=== PATIENT | male | born 1940 | race Caucasian/White ===

== ENCOUNTER → 2016-10-26 | Outpatient (CLI) | payer OTHER ==
[~2016-10-26] MED LIST: ATIVAN0.5 MG PO; MACROBID100 M1 PO; MOTRIN800 MG PO
== END | disposition home or self-care (01) ==
LOC: LAB 11:54
DX: C61 Malignant neoplasm of prostate (principal)

== ENCOUNTER → 2016-11-01 | Outpatient (CLI) | payer OTHER | END | disposition home or self-care (01) | LOC: LAB 09:15 | DX: C61 Malignant neoplasm of prostate (principal) ==

== ENCOUNTER 2016-12-07 16:22 | Emergency (ER) | payer OTHER ==
[~2016-12-07] VITALS: Ht 170.1 cm; Wt 65.8 kg
[2016-12-07] MEDS ORDERED: METFORMIN500 MG PO (16:33)
[2016-12-07] MEDS ORDERED: NAPROSYN500 MG PO (17:32)
[2016-12-07] MEDS ORDERED: CLINDAMYCIN150 MG PO (17:32)
[2016-12-07 19:01] VITALS: BP 188/100
[2016-12-07 19:06] LABS: BASO % 0.3 % (0.0-1.0); EOS % 0.5 % (1.0-4.0); HEMATOCRIT 37.3 % (42.0-52.0); HEMOGLOBIN 12.8 g/dl (14.0-18.0); LYMPH # 0.5 10*3/uL (1.3-4.4); LYMPH % 11.4 % (27.0-41.0); MEAN CELL VOLUME 92.6 fl (80.0-94.0); MEAN CORPUSCULAR HGB 31.8 pg (27.0-31.0); MEAN CORPUSCULAR HGB CONC 34.3 g/dl (33.0-37.0); MEAN PLATELET VOLUME 8.7 fl (9.6-12.3); MONO # 0.5 10*3/uL (0.1-1.0); MONO % 13.2 % (3.0-9.0); NEUT # 2.9 10*3/uL (2.3-7.9); NEUT % 74.1 % (47.0-73.0); PLATELET COUNT AUTOMATED 227 10*3/uL (130-400); RED BLOOD COUNT 4.03 10*6/uL (4.50-5.90); RED CELL DISTRI WIDTH 13.3 % (0-14.5); WHITE BLOOD COUNT 3.9 10*3/uL (4.8-10.8)
[2016-12-07 19:24] LABS: ALBUMIN 3.9 gm/dl (3.1-4.5); ALKALINE PHOSPHATASE 56 U/L (45-117); BILIRUBIN, TOTAL 0.6 mg/dl (0.2-1.0); BUN 14 mg/dl (7-24); CARBON DIOXIDE 29 mmol/L (21-32); CHLORIDE 94 mmol/L (98-107); EST GLOM FILT AFRICAN AMERICAN > 60 ml/min; GLUCOSE 107 mg/dL (65-99); INTERNATIONAL NORM RATIO 0.9 (2.0-3.5); POTASSIUM 4.1 mmol/L (3.5-5.1); PROTHROMBIN TIME 9.9 SECONDS (9.0-12.4); SGOT/AST 18 IU/L (3-35); SGPT/ALT 15 U/L (12-78); SODIUM 130 mmol/L (136-145); TOTAL PROTEIN 6.9 gm/dL (6.4-8.2)
== END 2016-12-07 19:57 | disposition short-term general hospital (02) ==
LOC: ED 16:22
PROVIDERS: Nurse Practitioner Family
DX: S02.91XA Unspecified fracture of skull, initial encounter for closed fracture (principal); S61.531A Puncture wound without foreign body of right wrist, initial encounter; R03.0 Elevated blood-pressure reading, without diagnosis of hypertension; W01.0XXA Fall on same level from slipping, tripping and stumbling without subsequent striking against object, initial encounter; Y93.89 Activity, other specified; Y92.89 Other specified places as the place of occurrence of the external cause; Y99.8 Other external cause status

== ENCOUNTER 2017-03-24 09:50 | Emergency (ER) | payer OTHER ==
[~2017-03-24] VITALS: Wt 72.6 kg
[~2017-03-24 09:50] MED LIST changes: +CLINDAMYCIN150 MG PO; +METFORMIN500 MG PO; +NAPROSYN500 MG PO
[2017-03-24 10:28] LABS: BASO % 0.3 % (0.0-1.0); EOS # 0.2 10*3/uL (0.0-0.4); HEMATOCRIT 37.6 % (42.0-52.0); HEMOGLOBIN 12.3 g/dl (14.0-18.0); LYMPH # 2.3 10*3/uL (1.3-4.4); LYMPH % 33.7 % (27.0-41.0); MEAN CELL VOLUME 97.4 fl (80.0-94.0); MEAN CORPUSCULAR HGB 31.9 pg (27.0-31.0); MEAN CORPUSCULAR HGB CONC 32.7 g/dl (33.0-37.0); MEAN PLATELET VOLUME 9.4 fl (9.6-12.3); MONO # 0.9 10*3/uL (0.1-1.0); NEUT # 3.3 10*3/uL (2.3-7.9); NEUT % 49.3 % (47.0-73.0); PLATELET COUNT AUTOMATED 388 10*3/uL (130-400); RED BLOOD COUNT 3.86 10*6/uL (4.50-5.90); RED CELL DISTRI WIDTH 12.5 % (0-14.5); WHITE BLOOD COUNT 6.7 10*3/uL (4.8-10.8)
[2017-03-24 10:37] LABS: ACT PARTIAL THROMBO TIME 25.5 SECONDS (20.8-31.5); INTERNATIONAL NORM RATIO 0.9 (2.0-3.5)
[2017-03-24 10:52] LABS: ALBUMIN 3.8 gm/dl (3.1-4.5); BUN 16 mg/dl (7-24); CHLORIDE 93 mmol/L (98-107); CREATININE 1.22 mg/dL (0.70-1.30); POTASSIUM 4.8 mmol/L (3.5-5.1); SGOT/AST 27 IU/L (3-35); SGPT/ALT 17 U/L (12-78); SODIUM 131 mmol/L (136-145); TOTAL PROTEIN 7.5 gm/dL (6.4-8.2)
[2017-03-24 10:53] LABS: ALKALINE PHOSPHATASE 82 U/L (45-117)
[2017-03-24 11:12] VITALS: BP 112/70
== END 2017-03-24 11:12 | disposition short-term general hospital (02) ==
LOC: ED 09:50
PROVIDERS: Emergency Medicine
DX: I62.9 Nontraumatic intracranial hemorrhage, unspecified (principal); R56.9 Unspecified convulsions; E11.9 Type 2 diabetes mellitus without complications; R41.82 Altered mental status, unspecified; R41.0 Disorientation, unspecified

== ENCOUNTER → 2017-04-21 | Outpatient (CLI) | payer OTHER, MEDICAID | END | disposition home or self-care (01) | LOC: LAB 12:01 | DX: C61 Malignant neoplasm of prostate (principal) ==

== ENCOUNTER → 2017-05-13 | Outpatient (CLI) | payer OTHER, MEDICAID ==
[2017-05-13 11:06] LABS: BASO % 0.3 % (0.0-1.0); EOS # 0.1 10*3/uL (0.0-0.4); EOS % 4.2 % (1.0-4.0); HEMATOCRIT 33.9 % (42.0-52.0); HEMOGLOBIN 11.8 g/dl (14.0-18.0); LYMPH # 0.6 10*3/uL (1.3-4.4); LYMPH % 20.3 % (27.0-41.0); MEAN CELL VOLUME 93.1 fl (80.0-94.0); MEAN CORPUSCULAR HGB 32.4 pg (27.0-31.0); MEAN CORPUSCULAR HGB CONC 34.8 g/dl (33.0-37.0); MEAN PLATELET VOLUME 8.7 fl (9.6-12.3); MONO # 0.5 10*3/uL (0.1-1.0); MONO % 16.7 % (3.0-9.0); NEUT # 1.8 10*3/uL (2.3-7.9); NEUT % 57.5 % (47.0-73.0); PLATELET COUNT AUTOMATED 243 10*3/uL (130-400); RED BLOOD COUNT 3.64 10*6/uL (4.50-5.90); RED CELL DISTRI WIDTH 13.3 % (0-14.5); WHITE BLOOD COUNT 3.1 10*3/uL (4.8-10.8)
[2017-05-13 11:35] LABS: ALBUMIN 3.8 gm/dl (3.1-4.5); ALKALINE PHOSPHATASE 79 U/L (45-117); BUN 16 mg/dl (7-24); CHLORIDE 98 mmol/L (98-107); CHOLESTEROL 202 mg/dL (<200); CREATININE 0.92 mg/dL (0.70-1.30); HDL CHOLESTEROL 80 mg/dl (40-60); LDL CHOLESTEROL 96 mg/dL (9-159); POTASSIUM 4.9 mmol/L (3.5-5.1); SGOT/AST 18 IU/L (3-35); SGPT/ALT 19 U/L (12-78); SODIUM 133 mmol/L (136-145); TOTAL PROTEIN 7.2 gm/dL (6.4-8.2); TRIGLYCERIDES 131 mg/dl (<150); VLDL CHOLESTEROL 26 mg/dL (6-40)
== END | disposition home or self-care (01) ==
LOC: LAB 10:32
PROVIDERS: Nurse Practitioner Primary Care
DX: Z12.5 Encounter for screening for malignant neoplasm of prostate (principal); I10 Essential (primary) hypertension; E11.9 Type 2 diabetes mellitus without complications

== ENCOUNTER → 2017-05-20 | Outpatient (CLI) | payer OTHER, MEDICAID | END | disposition home or self-care (01) | LOC: LAB 12:32 | DX: C61 Malignant neoplasm of prostate (principal) ==

== ENCOUNTER → 2017-05-27 | Outpatient (CLI) | payer OTHER, MEDICAID | END | disposition home or self-care (01) | LOC: CT 03:39 | DX: I62.00 Nontraumatic subdural hemorrhage, unspecified (principal); Z98.890 Other specified postprocedural states ==

== ENCOUNTER 2017-07-12 12:00 | Inpatient (IN) | payer OTHER, MEDICAID ==
[~2017-07-12] VITALS: Ht 170.1 cm; Wt 64.7 kg
--- NOTE | ~2017-07-12 | CON ---
[place], [place] REPORT OF CONSULTATION NAME: DELIA ROTHMAN UNIT #: [id number] ROOM: 525 DOCTOR: NORMAN HAYWOOD MD BIRTHDATE: [birth year] DOS: 07/13/2017 NEPHROLOGY CONSULTATION REASON FOR CONSULTATION: Hyponatremia. HISTORY OF PRESENT ILLNESS: The patient is a 77-year-old gentleman, not previously followed by a accessories repairer, without any known history of any hyponatremia or issues with his kidneys. He was recently hospitalized at [facility] after sustaining a fall with change in mental status. He has had uncontrolled hypertension in the past. He has also had an initial CT scan back on March 24 when he had a 1.8-cm subdural hematoma and 2-mm left midline shift without herniation noted. He was flown to [facility] at that time. He is unable to provide any reliable medical history as his dates and times are very poor. He thought he was there just last month. He had what appears to have been a craniotomy and he states that at home he had a fall last week and he had no complaints of any chest pain, shortness of breath, dizziness or some passing out spells and states that he fell on his buttocks and had no pain post fall. However, he was told by his girlfriend that he should come to the hospital for further evaluation. He went to the [facility] and had some orthostatic vital signs and a low pulse ox of 88% and he was sent to the Emergency Department for further evaluation. Per the admitting documentation, it appears that the patient had been having prior falls as well. The patient has a power of gold reclaimer who apparently only knows him for 6 months. We are consulted as his initial sodium level was 125. He had a negative head CT done so far while during this hospitalization. He had a set of fairly stable electrolytes and blood pressures on prior hospitalizations. Today, his sodium is improved to 130. He had urinalysis, which was done after some volume had already been given. His urine osmolality was 154. Sodium was 33, chloride 35, potassium 17, creatinine 16.2. He states that he has a good appetite and he is trying to eat dinner,. He does not seem to have any nausea or vomiting at this time, but intake may be somewhat limited. HOME MEDICATIONS: Include lisinopril, carvedilol, and metformin. He is not on any diuretics. He was given half-normal saline for 1 liter yesterday. I was told he was getting normal saline, but apparently it was half normal hikes. 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 PAST SURGICAL HISTORY: Treatment of the above as well as history of cataract surgery and hernia surgery. FAMILY HISTORY: Negative for renal failure. ALLERGIES: No known drug allergies. SOCIAL HISTORY: Denies any toxic habits. REVIEW OF SYSTEMS: Limited from the patient from a reliability standpoint, but [place], [place] REPORT OF CONSULTATION NAME: DELIA ROTHMAN UNIT #: [id number] ROOM: [facility] DOCTOR: NORMAN HAYWOOD MD BIRTHDATE: [birth year] denies all systems except for as mentioned above in the HPI. PHYSICAL EXAMINATION: VITAL SIGNS: 98.6, 64, 20, 140/82, pulse ox 98% on room air. GENERAL: Awake, alert. He seems to be oriented to himself and place as well as time, but his overall insight and concentration is limited. Recent memory of his events are also limited. Speech patterns are otherwise clear and cogent. He has hearing aids in place. HEENT: Extraocular muscles are intact. Sclerae anicteric. Oropharynx is clear. Pupils are equal and reactive. No JVD or lymphadenopathy. NECK: Supple, with normal midline trachea. LUNGS: Clear bilaterally without audible rales, rhonchi or wheeze. CARDIOVASCULAR: Regular rate. No audible rub. No palpable lift or heave. ABDOMEN: Soft, nontender, nondistended. No rebound or guarding. No CVA tenderness. EXTREMITIES: Without cyanosis, clubbing or edema. Normal 2+ pulses in all 4 extremities. SKIN: Without diffuse rashes or breakdowns. NEUROLOGIC: No asterixis. Normal gross motor function. Sensation deconditioned. LABORATORIES AND DIAGNOSTICS: White blood cell count 3.5; hemoglobin 10.6; platelets 200,000. Sodium 130, potassium 4.3, chloride 95, bicarb 27. BUN 11; creatinine 0.93, stable, down from 1.22. A1c is 5.1, calcium 8.6, phosphorus 3.1, magnesium 1.8. LFTs unremarkable. Albumin 3.2. Vitamin D level slightly low at 23.5. Thyroid function studies are normal. Urine studies as mentioned above. Troponin negative. ASSESSMENT AND PLAN: Hyponatremia. This seems to be acute, likely secondary to poor solute intake prior to hospitalization. He was given some in the form of half-normal saline. Sodium has improved to 130. I would encourage him to be on copious oral protein and solute intake at this point and recommend mild fluid restriction at this point as he may be having some mild polydipsia relative to the amount of solute intake. Continue to avoid thiazide diuretics. His blood pressures are acceptably controlled on his home oral regimen, but they seem to be somewhat labile. He has mild vitamin D deficiency, is started on replacement as well as hypertension is acceptably controlled. If there is no further improvement in sodium with oral intake and gentle fluid restriction, we would recommend another liter of fluid, this time saline 0.9%. Thank you very much for the kind consultation. [place], [place] REPORT OF CONSULTATION NAME: DELIA ROTHMAN UNIT #: [id number] ROOM: [facility] DOCTOR: NORMAN HAYWOOD MD BIRTHDATE: [birth year] NORMAN HAYWOOD MD CM:CONSTR:REPORT OF CONSULTATION 1603 07/14/17 0310 interface
[2017-07-12 12:14] VITALS: BP 154/98
[2017-07-12 12:44] LABS: EOS # 0.1 10*3/uL (0.0-0.4); EOS % 2.5 % (1.0-4.0); HEMATOCRIT 33.2 % (42.0-52.0); HEMOGLOBIN 11.8 g/dl (14.0-18.0); LYMPH # 0.6 10*3/uL (1.3-4.4); MEAN CELL VOLUME 89.7 fl (80.0-94.0); MEAN CORPUSCULAR HGB 31.9 pg (27.0-31.0); MEAN CORPUSCULAR HGB CONC 35.5 g/dl (33.0-37.0); MEAN PLATELET VOLUME 8.4 fl (9.6-12.3); MONO # 0.6 10*3/uL (0.1-1.0); MONO % 12.5 % (3.0-9.0); NEUT # 3.8 10*3/uL (2.3-7.9); NEUT % 73.6 % (47.0-73.0); PLATELET COUNT AUTOMATED 223 10*3/uL (130-400); RED CELL DISTRI WIDTH 12.8 % (0-14.5); WHITE BLOOD COUNT 5.1 10*3/uL (4.8-10.8)
[2017-07-12 13:01] LABS: ALBUMIN 3.9 gm/dl (3.1-4.5); ALKALINE PHOSPHATASE 83 U/L (45-117); BUN 14 mg/dl (7-24); CHLORIDE 92 mmol/L (98-107); CREATININE 0.94 mg/dL (0.70-1.30); POTASSIUM 4.4 mmol/L (3.5-5.1); SGOT/AST 14 IU/L (3-35); SGPT/ALT 18 U/L (12-78); SODIUM 125 mmol/L (136-145); TOTAL PROTEIN 7.2 gm/dL (6.4-8.2)
[2017-07-12 13:07] LABS: TROPONIN I < 0.015 ng/ml (<0.045)
[2017-07-12 13:49] LABS: BILIRUBIN NEGATIVE (NEGATIVE); BLOOD 2+ (NEGATIVE); CLARITY CLEAR (CLEAR); COLOR YELLOW (YELLOW); GLUCOSE NEGATIVE (NEGATIVE); KETONE NEGATIVE (NEGATIVE); LEUKO ESTERASE NEGATIVE (NEGATIVE); NITRITE NEGATIVE (NEGATIVE); PH 5.5 (5.0-9.0); SPECIFIC GRAVITY <= 1.005 (1.005-1.030); UROBILINOGEN 0.2 E.U./dl (0.2-1.0)
[2017-07-12 14:00] LABS: BACTERIA TRACE; RBC 16-20 rbc/hpf (0-2); WBC 0-2 wbc/hpf (0-5)
[2017-07-12 15:00] VITALS: BP 210/100
[2017-07-12] MEDS ORDERED: COREG6.25 MG PO (15:05)
[2017-07-12] MEDS ORDERED: ZESTRIL40 MG PO (15:05)
[2017-07-12 16:00] VITALS: BP 160/81
[2017-07-12 17:33] LABS: URINE CREATININE RANDOM 16.2 mg/dL
[2017-07-12 20:00] VITALS: BP 114/63
[2017-07-13] VITALS: BP 135/80
[2017-07-13 04:00] VITALS: BP 162/80
[2017-07-13 06:07] LABS: EOS # 0.1 10*3/uL (0.0-0.4); EOS % 2.5 % (1.0-4.0); HEMATOCRIT 30.2 % (42.0-52.0); HEMOGLOBIN 10.6 g/dl (14.0-18.0); LYMPH # 0.4 10*3/uL (1.3-4.4); LYMPH % 12.1 % (27.0-41.0); MEAN CELL VOLUME 90.4 fl (80.0-94.0); MEAN CORPUSCULAR HGB 31.7 pg (27.0-31.0); MEAN CORPUSCULAR HGB CONC 35.1 g/dl (33.0-37.0); MONO # 0.6 10*3/uL (0.1-1.0); MONO % 16.1 % (3.0-9.0); NEUT # 2.4 10*3/uL (2.3-7.9); NEUT % 68.2 % (47.0-73.0); PLATELET COUNT AUTOMATED 200 10*3/uL (130-400); RED BLOOD COUNT 3.34 10*6/uL (4.50-5.90); RED CELL DISTRI WIDTH 12.7 % (0-14.5); WHITE BLOOD COUNT 3.5 10*3/uL (4.8-10.8)
[2017-07-13 06:39] LABS: ALBUMIN 3.2 gm/dl (3.1-4.5); ALKALINE PHOSPHATASE 68 U/L (45-117); BUN 11 mg/dl (7-24); CHLORIDE 95 mmol/L (98-107); CHOLESTEROL 155 mg/dL (<200); CREATININE 0.93 mg/dL (0.70-1.30); FREE T4 1.08 ng/dl (0.76-1.46); HDL CHOLESTEROL 74 mg/dl (40-60); LDL CHOLESTEROL 64 mg/dL (9-159); PHOSPHOROUS 3.1 mg/dL (2.5-4.9); POTASSIUM 4.3 mmol/L (3.5-5.1); SGOT/AST 10 IU/L (3-35); SGPT/ALT 16 U/L (12-78); SODIUM 130 mmol/L (136-145); TOTAL PROTEIN 6.2 gm/dL (6.4-8.2); TRIGLYCERIDES 86 mg/dl (<150); VLDL CHOLESTEROL 17 mg/dL (6-40)
[2017-07-13 08:00] VITALS: BP 125/68
[2017-07-13 08:17] LABS: VITAMIN D, 25-HYDROXY 23.5 ng/mL (30-100)
[2017-07-13 12:00] VITALS: BP 140/82
[2017-07-13 16:00] VITALS: BP 149/88
[2017-07-13 20:00] VITALS: BP 151/90
[2017-07-14] VITALS: BP 128/72
[2017-07-14 06:20] LABS: BASO % 0.3 % (0.0-1.0); EOS # 0.1 10*3/uL (0.0-0.4); EOS % 3.3 % (1.0-4.0); HEMATOCRIT 30.2 % (42.0-52.0); HEMOGLOBIN 10.3 g/dl (14.0-18.0); LYMPH # 0.5 10*3/uL (1.3-4.4); LYMPH % 14.7 % (27.0-41.0); MEAN CELL VOLUME 91.5 fl (80.0-94.0); MEAN CORPUSCULAR HGB 31.2 pg (27.0-31.0); MEAN CORPUSCULAR HGB CONC 34.1 g/dl (33.0-37.0); MEAN PLATELET VOLUME 8.9 fl (9.6-12.3); MONO # 0.6 10*3/uL (0.1-1.0); MONO % 16.5 % (3.0-9.0); NEUT # 2.1 10*3/uL (2.3-7.9); NEUT % 64.3 % (47.0-73.0); PLATELET COUNT AUTOMATED 190 10*3/uL (130-400); RED CELL DISTRI WIDTH 12.7 % (0-14.5); WHITE BLOOD COUNT 3.3 10*3/uL (4.8-10.8)
[2017-07-14 06:44] LABS: BUN 15 mg/dl (7-24); CHLORIDE 97 mmol/L (98-107); POTASSIUM 4.6 mmol/L (3.5-5.1); SODIUM 131 mmol/L (136-145)
[2017-07-14 06:46] LABS: CREATININE 0.94 mg/dL (0.70-1.30)
[2017-07-14 08:00] VITALS: BP 148/68
[2017-07-14 12:00] VITALS: BP 160/80
[2017-07-14 16:00] VITALS: BP 148/70
[2017-07-14 20:00] VITALS: BP 149/84
[2017-07-15] VITALS: BP 164/60
[2017-07-15 07:27] LABS: BUN 13 mg/dl (7-24); CHLORIDE 97 mmol/L (98-107); CREATININE 0.82 mg/dL (0.70-1.30); POTASSIUM 4.6 mmol/L (3.5-5.1); SODIUM 131 mmol/L (136-145)
[2017-07-15 08:00] VITALS: BP 162/68
[2017-07-15 12:00] VITALS: BP 160/66
[2017-07-15] MEDS ORDERED: Vitamin D PO (14:56)
== END 2017-07-15 15:52 | disposition home health service (06) | DRG 641 ==
LOC: ED 12:00 → EDHOLD 13:59 → 5E 13:59
PROVIDERS: Internal Medicine; Nurse Practitioner Family; Registered Nurse; ADMIT Internal Medicine
DX: E87.1 Hypo-osmolality and hyponatremia (principal); E44.0 Moderate protein-calorie malnutrition; D64.9 Anemia, unspecified; E11.9 Type 2 diabetes mellitus without complications; E55.9 Vitamin D deficiency, unspecified; F43.10 Post-traumatic stress disorder, unspecified; I10 Essential (primary) hypertension; K57.90 Diverticulosis of intestine, part unspecified, without perforation or abscess without bleeding; E87.8 Other disorders of electrolyte and fluid balance, not elsewhere classified; Z68.22 Body mass index [BMI] 22.0-22.9, adult; Z79.84 Long term (current) use of oral hypoglycemic drugs; Z79.899 Other long term (current) drug therapy; Z80.9 Family history of malignant neoplasm, unspecified; Z72.89 Other problems related to lifestyle; Z83.3 Family history of diabetes mellitus; Z86.73 Personal history of transient ischemic attack (TIA), and cerebral infarction without residual deficits; Z85.46 Personal history of malignant neoplasm of prostate; Z87.81 Personal history of (healed) traumatic fracture; Z87.440 Personal history of urinary (tract) infections; Z98.49 Cataract extraction status, unspecified eye

== ENCOUNTER → 2017-07-22 | Outpatient (CLI) | payer OTHER, MEDICAID ==
[~2017-07-22] MED LIST changes: +COREG6.25 MG PO; +Vitamin D PO; +ZESTRIL40 MG PO
[2017-07-22 08:54] LABS: BUN 13 mg/dl (7-24); CHLORIDE 98 mmol/L (98-107); CREATININE 0.92 mg/dL (0.70-1.30); POTASSIUM 4.1 mmol/L (3.5-5.1); SODIUM 135 mmol/L (136-145)
== END | disposition home or self-care (01) ==
LOC: LAB 07:55
PROVIDERS: Internal Medicine
DX: E87.1 Hypo-osmolality and hyponatremia (principal)

== ENCOUNTER 2017-09-05 11:05 | Emergency (ER) | payer OTHER, MEDICAID ==
[~2017-09-05] VITALS: Ht 170.1 cm; Wt 69.4 kg
[2017-09-05 12:06] LABS: EOS # 0.1 10*3/uL (0.0-0.4); EOS % 3.1 % (1.0-4.0); HEMATOCRIT 31.7 % (42.0-52.0); HEMOGLOBIN 10.9 g/dl (14.0-18.0); LYMPH # 0.5 10*3/uL (1.3-4.4); LYMPH % 17.4 % (27.0-41.0); MEAN CELL VOLUME 91.9 fl (80.0-94.0); MEAN CORPUSCULAR HGB 31.6 pg (27.0-31.0); MEAN CORPUSCULAR HGB CONC 34.4 g/dl (33.0-37.0); MEAN PLATELET VOLUME 9.5 fl (9.6-12.3); MONO # 0.4 10*3/uL (0.1-1.0); MONO % 13.6 % (3.0-9.0); NEUT # 1.9 10*3/uL (2.3-7.9); NEUT % 64.5 % (47.0-73.0); PLATELET COUNT AUTOMATED 229 10*3/uL (130-400); RED BLOOD COUNT 3.45 10*6/uL (4.50-5.90); RED CELL DISTRI WIDTH 13.5 % (0-14.5); WHITE BLOOD COUNT 2.9 10*3/uL (4.8-10.8)
[2017-09-05 12:18] LABS: ACT PARTIAL THROMBO TIME 24.7 SECONDS (20.8-31.5)
[2017-09-05 12:28] LABS: ALBUMIN 3.5 gm/dl (3.1-4.5); BUN 17 mg/dl (7-24); CHLORIDE 97 mmol/L (98-107); CREATININE 1.01 mg/dL (0.70-1.30); LIPASE 255 U/L (73-393); POTASSIUM 4.5 mmol/L (3.5-5.1); SGOT/AST 14 IU/L (3-35); SGPT/ALT 19 U/L (12-78); SODIUM 131 mmol/L (136-145); TOTAL PROTEIN 6.4 gm/dL (6.4-8.2)
[2017-09-05 12:30] LABS: ALKALINE PHOSPHATASE 64 U/L (45-117)
[2017-09-05 12:38] LABS: TROPONIN I < 0.015 ng/ml (<0.045)
[2017-09-05 13:00] VITALS: BP 152/81
== END 2017-09-05 13:29 | disposition home or self-care (01) ==
LOC: ED 11:05
PROVIDERS: Emergency Medicine
DX: I10 Essential (primary) hypertension (principal); E11.9 Type 2 diabetes mellitus without complications

== ENCOUNTER → 2017-11-14 | Outpatient (CLI) | payer OTHER | END | disposition home or self-care (01) | LOC: LAB 08:36 | DX: C61 Malignant neoplasm of prostate (principal) ==

== ENCOUNTER 2018-04-18 08:34 | Inpatient (IN) | payer OTHER, MEDICARE ==
[~2018-04-18] VITALS: Ht 170.2 cm; Wt 62.2 kg
[2018-04-18] VITALS (9 sets, daily range): BP systolic 105–199; BP diastolic 65–106
--- NOTE | ~2018-04-18 | CON ---
[place], [place] REPORT OF CONSULTATION [id number] UNIT #: [id number] ROOM: [facility] DOCTOR: JAYY CHRISTOPHER MD BIRTHDATE: [birth year] DOS: 04/18/2018 CHIEF COMPLAINT: A 77-year-old who has presented to Emergency Room with chief complaint of being dizzy and complaining that he has had hematemesis and relevant history. He tells me that he is drinking 2 beers per day and no more and he denies nonsteroidal anti-inflammatory or blood thinners of any kind. Therefore, he had to be admitted after I discussed with Dr. Duc Shook, and decision was to admit the patient for definite urgent evaluation. PAST MEDICAL HISTORY: Associated with diabetes mellitus, hypertension, prostate carcinoma, PTSD, subdural hematoma history, uncontrolled hypertension, vitamin D deficiency, CVA. PAST SURGICAL HISTORY: Craniotomy and cataract extraction. Left inguinal hernia and T and A. SOCIAL HISTORY: Chewing tobacco and daily alcohol of 2 beers per day and nonsmoker. FAMILY HISTORY: Noncontributory. MEDICATIONS: List reviewed. Records reviewed. REVIEW OF SYSTEMS: HEENT: Denies double vision, blurred vision. RESPIRATORY: Denies shortness of breath. CARDIOVASCULAR: Denies chest pain. DIGESTIVE SYSTEM: Hematemesis and coffee-ground matters. PHYSICAL EXAMINATION: GENERAL: Nontoxic patient. VITAL SIGNS: Normal. Hard of hearing. HEENT: Head normocephalic, nontraumatic. Mouth and buccal mucosa benign. NECK: Supple, no thyromegaly, no cervical lymphadenopathy. CHEST: Symmetric anatomy, equal expansion. No wheeze, no rhonchi. HEART: Normal sinus rhythm, no gallop, no murmur. ABDOMEN: Soft. No hepato-organomegaly. Bowel sounds present. No pulsatile mass. EXTREMITIES: No cyanosis, no pedal edema. NEUROLOGIC: Alert, hard of hearing, oriented. IMPRESSION: Hematemesis, etiology unknown, to be investigated. The patient is on tobacco product and chew, possibility of false positive coffee-ground appearing emesis secondary to chew product, and on the other hand possibility of true positivity if concern. PLAN AND DISCUSSION: Other adjunctive diagnoses as outlined above. We are going to proceed with panendoscopy for etiology of hematemesis. His labs and records have been reviewed. His CBC has been stable, white blood cell 2.7, H and H of 12 and 36. His platelet count has been 230. Lactic acid 1.5. INR [place], [place] REPORT OF CONSULTATION NAME: DELIA ROTHMAN UNIT #: [id number] ROOM: [facility] DOCTOR: CANDI WORTHIGNTON,JAYY BIRTHDATE: [birth year] 0.9. Comprehensive metabolic panel, GFR greater than 60. Electrolytes imbalance, lipase 260. BNP 889. Troponin normal. CT scan of the head and abdomen and pelvis was reviewed, no acute process in the abdomen. JAYY CHRISTOPHER MD CM:CONSTR:REPORT OF CONSULTATION 1819 05/09/18 0935 interface
--- NOTE | ~2018-04-18 | EKG ---
[place], [place] ELECTROCARDIOGRAM REPORT NAME: DELIA ROTHMAN UNIT #: [id number] ROOM: [facility] DOCTOR: LEO DRAFT REPORT BIRTHDATE: [birth year] [facility] Test Date: 2018-04-18 Test Time: 08:54:38 Pat Name: DELIA ROTHMAN Department: Room: [facility] Gender: M Brusher And Shearer: Nya Crawford : 1940 Requested By: MALINA THOMPSON Order Number: [id number] Reading MD: Nallely Neff MD Measurements Intervals Diana Rate: 62 P: 25 NH: 225 QRS: -36 QRSD: 98 T: 16 QT: 411 QTc: 418 Interpretive Statements Sinus rhythm Multiple ventricular premature complexes Prolonged NH interval Left axis deviation Borderline low voltage, extremity leads Probable anteroseptal infarct, old Electronically Signed On 04-21-2018 9:32:55 PDT by Nallely Neff MD CM:EKGRPT:ELECTROCARDIOGRAM REPORT MALINA CAMPOS DRAFT REPORT MALINA THOMPSON DO
--- NOTE | ~2018-04-18 | O ---
[place], [place] OPERATIVE NOTE NAME: DELIA ROTHMAN UNIT #: [id number] ROOM: [facility] DOCTOR: CANDI WORTHINGTON,JAYY BIRTHDATE: [birth year] DOS: 04/18/2018 PROCEDURE: Today's procedure part of investigation of hematemesis is panendoscopy plus biopsy. PREMEDICATION: Propofol. SCOPE: Olympus forward-viewing gastroscope Q10 video. REPORT: After putting the patient in left lateral position and application of lubricant to the scope, the scope was introduced. Thereafter, under direct visualization, I advanced through the length of the esophagus without difficulty. Small hiatal hernia noticed. Gastric pouch was entered. Up to this point, distal esophagitis was noticed. No evidence of other pathology. Gastric pouch was entered. Gastritis seen. Duodenal bulb, second and third part within normal limits. Antral biopsy obtained. GI reflexion of the scope reveals cardia to be benign. Air was suctioned out. The patient was extubated, tolerated the procedure well. IMPRESSION: Distal esophagitis with small hiatal hernia, mild gastritis. This patient is ready to be fed and there is no true positive hematemesis; however, he would benefit from Protonix 40 mg daily since his famotidine 40 mg daily has not been taking care of his distal esophagitis issues. JAYY CHRISTOPHER MD CM:OPRECORD:OPERATIVE NOTE 1819 0455 JAYY CHRISTOPHER MD 04/19/18 0453 interface
[~2018-04-18 08:34] MED LIST changes: +METFORMIN HYDR500 MG PO; -METFORMIN500 MG PO
[2018-04-18 09:07] LABS: BASO % 0.4 % (0.0-1.0); EOS # 0.1 10*3/uL (0.0-0.4); EOS % 2.3 % (1.0-4.0); HEMATOCRIT 36.5 % (42.0-52.0); HEMOGLOBIN 12.6 g/dl (14.0-18.0); LYMPH # 0.5 10*3/uL (1.3-4.4); LYMPH % 19.9 % (27.0-41.0); MEAN CELL VOLUME 91.9 fl (80.0-94.0); MEAN CORPUSCULAR HGB 31.7 pg (27.0-31.0); MEAN CORPUSCULAR HGB CONC 34.5 g/dl (33.0-37.0); MEAN PLATELET VOLUME 8.7 fl (9.6-12.3); MONO # 0.4 10*3/uL (0.1-1.0); MONO % 13.5 % (3.0-9.0); NEUT # 1.7 10*3/uL (2.3-7.9); NEUT % 63.1 % (47.0-73.0); PLATELET COUNT AUTOMATED 239 10*3/uL (130-400); RED BLOOD COUNT 3.97 10*6/uL (4.50-5.90); WHITE BLOOD COUNT 2.7 10*3/uL (4.8-10.8)
[2018-04-18 09:16] LABS: ACT PARTIAL THROMBO TIME 23.3 SECONDS (20.8-31.5); INTERNATIONAL NORM RATIO 0.9 (2.0-3.5)
[2018-04-18 09:25] LABS: ALBUMIN 3.9 gm/dl (3.1-4.5); ALKALINE PHOSPHATASE 58 U/L (45-117); BUN 14 mg/dl (7-24); CHLORIDE 97 mmol/L (98-107); CREATININE 0.98 mg/dL (0.70-1.30); LIPASE 216 U/L (73-393); POTASSIUM 4.5 mmol/L (3.5-5.1); SGOT/AST 14 IU/L (3-35); SGPT/ALT 20 U/L (12-78); SODIUM 131 mmol/L (136-145); TOTAL PROTEIN 7.1 gm/dL (6.4-8.2); TROPONIN I < 0.015 ng/ml (<0.045)
[2018-04-18 11:16] LABS: BILIRUBIN NEGATIVE (NEGATIVE); BLOOD TRACE-INTACT (NEGATIVE); CLARITY CLEAR (CLEAR); COLOR YELLOW (YELLOW); GLUCOSE NEGATIVE (NEGATIVE); KETONE NEGATIVE (NEGATIVE); LEUKO ESTERASE NEGATIVE (NEGATIVE); NITRITE NEGATIVE (NEGATIVE); PH 6.5 (5.0-9.0); SPECIFIC GRAVITY <= 1.005 (1.005-1.030); UROBILINOGEN 0.2 E.U./dl (0.2-1.0)
[2018-04-18 11:26] LABS: WBC 0-2 wbc/hpf (0-5)
[2018-04-18] MEDS ORDERED: VITAMIN D-32000 UNIT PO (13:14)
[2018-04-18] MEDS ORDERED: PEPCID20 MG PO (13:14)
[2018-04-19] VITALS: BP 172/97
[2018-04-19 04:00] VITALS: BP 164/86
[2018-04-19 05:44] LABS: BUN 13 mg/dl (7-24); CHLORIDE 96 mmol/L (98-107); CHOLESTEROL 176 mg/dL (<200); FREE T4 0.95 ng/dl (0.76-1.46); HDL CHOLESTEROL 67 mg/dl (40-60); LDL CHOLESTEROL 83 mg/dL (9-159); SODIUM 132 mmol/L (136-145); TRIGLYCERIDES 130 mg/dl (<150); VLDL CHOLESTEROL 26 mg/dL (6-40)
[2018-04-19 06:11] LABS: BASO % 0.3 % (0.0-1.0); EOS # 0.1 10*3/uL (0.0-0.4); HEMATOCRIT 34.4 % (42.0-52.0); HEMOGLOBIN 11.9 g/dl (14.0-18.0); LYMPH # 0.6 10*3/uL (1.3-4.4); LYMPH % 15.8 % (27.0-41.0); MEAN CORPUSCULAR HGB 31.8 pg (27.0-31.0); MEAN CORPUSCULAR HGB CONC 34.6 g/dl (33.0-37.0); MEAN PLATELET VOLUME 9.3 fl (9.6-12.3); MONO # 0.5 10*3/uL (0.1-1.0); MONO % 13.3 % (3.0-9.0); NEUT # 2.7 10*3/uL (2.3-7.9); NEUT % 68.1 % (47.0-73.0); PLATELET COUNT AUTOMATED 220 10*3/uL (130-400); RED BLOOD COUNT 3.74 10*6/uL (4.50-5.90); WHITE BLOOD COUNT 3.9 10*3/uL (4.8-10.8)
[2018-04-19 08:00] VITALS: BP 163/83
[2018-04-19 08:16] LABS: VITAMIN D, 25-HYDROXY 33.4 ng/mL (30-100)
[2018-04-19] MEDS ORDERED: NORVASC5 MG PO (10:06)
[2018-04-19] MEDS ORDERED: PROTONIX40 MG PO (10:06)
== END 2018-04-19 10:26 | disposition home or self-care (01) | DRG 378 ==
LOC: ED 08:34 → ICCU 11:53 → EDHOLD 11:53 → ICCU 12:16
PROVIDERS: Emergency Medicine; Internal Medicine
PROC: 0DB68ZX Excision of Stomach, Via Natural or Artificial Opening Endoscopic, Diagnostic (ICD-10-PCS; principal; 2018-04-18)
DX: K29.71 Gastritis, unspecified, with bleeding (principal); E87.1 Hypo-osmolality and hyponatremia; E44.0 Moderate protein-calorie malnutrition; C61 Malignant neoplasm of prostate; I16.0 Hypertensive urgency; I49.3 Ventricular premature depolarization; I10 Essential (primary) hypertension; F43.10 Post-traumatic stress disorder, unspecified; D64.9 Anemia, unspecified; R31.9 Hematuria, unspecified; E83.41 Hypermagnesemia; D72.819 Decreased white blood cell count, unspecified; K57.90 Diverticulosis of intestine, part unspecified, without perforation or abscess without bleeding; F17.220 Nicotine dependence, chewing tobacco, uncomplicated; E11.65 Type 2 diabetes mellitus with hyperglycemia; K21.0 Gastro-esophageal reflux disease with esophagitis; K44.9 Diaphragmatic hernia without obstruction or gangrene; Z92.21 Personal history of antineoplastic chemotherapy; Z79.899 Other long term (current) drug therapy; Z86.73 Personal history of transient ischemic attack (TIA), and cerebral infarction without residual deficits; Z87.440 Personal history of urinary (tract) infections; Z83.3 Family history of diabetes mellitus; Z98.49 Cataract extraction status, unspecified eye; Z80.8 Family history of malignant neoplasm of other organs or systems; Z91.81 History of falling; Z68.21 Body mass index [BMI] 21.0-21.9, adult

== ENCOUNTER 2018-08-22 16:56 | Inpatient (IN) | payer OTHER ==
[~2018-08-22] VITALS: Ht 170.1 cm
--- NOTE | ~2018-08-22 | EKG ---
[place], [place] ELECTROCARDIOGRAM REPORT NAME: DELIA ROTHMAN UNIT #: [id number] ROOM: 408 DOCTOR: LEO DRAFT REPORT BIRTHDATE: [birth year] [facility] Test Date: 2018-08-22 Test Time: 17:22:51 Pat Name: DELIA ROTHMAN Department: Room: 408 Gender: M Health Coach: : 1940 Requested By: LUZMARIA KIRKPATRICK Order Number: [id number] Reading MD: Benjamín Aceves MD Measurements Intervals [place] Rate: 58 P: 37 AZ: 200 QRS: -35 QRSD: 102 T: 20 QT: 444 QTc: 437 Interpretive Statements Sinus rhythm with first degree AV block Probable left atrial enlargement Compared to ECG 04/18/2018 08:54:38 Ventricular premature complex(es) no longer present Electronically Signed On 08-25-2018 15:37:14 PST by Benjamín Aceves MD CM:EKGRPT:ELECTROCARDIOGRAM REPORT 1722 1537 LUZMARIA KIRKPATRICK EPIPHANY DRAFT REPORT LUZMARIA KIRKPATRICK
--- NOTE | ~2018-08-22 | PR ---
[place], [place] PROGRESS NOTE NAME: DELIA ROTHMAN [facility] #: [id number] UNIT #: [id number] ROOM: 408 DOCTOR: INGRID MCKINNEY MD BIRTHDATE: [birth year] DOS: 08/25/2018 CARDIOLOGY PROGRESS NOTE SUBJECTIVE: The patient was seen in his bedroom at the [facility] on 08/25/2018 for followup of syncope. He was found to have orthostatic hypotension and hyponatremia. He actually has a history of hyponatremia and falls in 2017. One fall was complicated by a subdural hematoma, for which he has had a right craniotomy. On this admission, his sodium was initially 128. It has risen to 136 with fluid resuscitation. I recommended that we withhold diuretics, especially hydrochlorothiazide. Overnight, his electrolytes have remained stable. In addition, he was placed on carvedilol and his heart rate has been stable as well. He has not had any significant bradycardia since his admission, although he has had some episodes of bradycardia in the 50 range. He remains asymptomatic, even though he still does have demonstrable orthostatic hypotension. PHYSICAL EXAMINATION: VITAL SIGNS: On exam today, his pulse is 72 and regular, blood pressure is 138/60. Last evening, his orthostatic blood pressures were 152/64 supine, 144/64 sitting and 128/54 standing with a rise in pulse from 58-86. He was not symptomatic with this. We do not have a weight. HEENT: Normocephalic, atraumatic. Extraocular muscles are intact. Sclerae are clear. Pupils equal, round and react to light. The oral mucosa is moist. Tongue is midline. NECK: Supple. He has no jugular distention. Carotids are full. There are no bruits. He has no neck or supraclavicular masses. LUNGS: Respirations are unlabored. His chest is clear to auscultation and percussion. He has no presacral edema or chest wall tenderness. HEART: Has a regular rhythm with a soft S4 gallop, but no S3 or murmur. The PMI is not displaced. There is no precordial heave, lift or thrill. ABDOMEN: Soft and normally active without masses, organomegaly or bruits. EXTREMITIES: Showed no edema. Pedal pulses were palpable in the feet. IMPRESSIONS: 1. Syncope, most likely due to orthostatic hypotension exacerbated by hydrochlorothiazide. 2. Hyponatremia exacerbated by hydrochlorothiazide. 3. Bradycardia, which is mild and does not appear to be a cause for concern at this time. 4. History of falling episodes and hyponatremia in 2017. 5. History of subdural hematoma, 03/2017 after a fall. PLAN: The patient appears to be asymptomatic despite his orthostatic hypotension. Hopefully, as he is further out from his thiazide diuretics, this will improve. I did warn him that he should stand slowly and wait a while before he starts walking. I would like him to follow up with us in the Cardiology office in about a month. I thank the hospitalist physicians for asking our advice regarding his care. [place], [place] PROGRESS NOTE NAME: LORNADELIA L UNIT #: [id number] ROOM: [facility] DOCTOR: INGRID MCKINNEY MD BIRTHDATE: [birth year] INGRID MCKINNEY MD CM:PNTRANS [id number] INGRID MCKINNEY MD 08/25/18 1157 interface
--- NOTE | ~2018-08-22 | CON ---
[place], [place] REPORT OF CONSULTATION [id number] #: [id number] ROOM: 408 DOCTOR: INGRID MCKINNEY MD BIRTHDATE: [birth year] DOS: 08/24/2018 CARDIOLOGY CONSULTATION REASON FOR CONSULTATION: Syncope. HISTORY OF PRESENT ILLNESS: The patient is a 78-year-old man who presented to the hospital on this occasion with a syncopal episode. He apparently was speaking to his girlfriend and became lightheaded. He sat down and put his head down on the table and then apparently became unresponsive. He has no recollection of that part of the event. The next thing he knew he was surrounded by emergency back office medical assistant and was transported to the hospital. Upon arrival, his blood pressure was 171/87, pulse was 58 and sodium was 128. He was given IV fluids and his sodium increased to 136 and he was admitted to the hospital for further observation. Since he has been here, he has felt well. His monitor shows isolated PVCs, but no significant arrhythmias. His heart rate is relatively slow with one heart rate measured at 42 during sleep, but generally his heart rate is in the mid 50s. He was taken off of carvedilol and his heart rate went into the 70s. At all times he was in sinus rhythm. He does have a history of orthostatic hypotension and was seen in the resident's clinic for that in the past. PAST MEDICAL HISTORY: Includes: 1. Frequent falling episodes in 2017. Etiology not known to the patient. One of these was complicated by a head injury and subdural hematoma in March 2017. The patient was transferred to [facility] where he underwent craniotomy. 2. History of hyponatremia in the past. The patient was told not to take diuretics. 3. Essential hypertension. 4. History of hypertensive urgency. 5. History of prostate cancer. 6. Status post herniorrhaphy. MEDICATIONS: Prior to admission, amlodipine 5 mg daily, carvedilol 6.25 mg b.i.d., cholecalciferol 2000 units daily, famotidine 20 mg at bedtime, iron sulfate 325 mg daily, hydrochlorothiazide 25 mg daily, lisinopril 40 mg daily and pantoprazole 40 mg daily. ALLERGIES: The patient has no known drug allergies. REVIEW OF SYSTEMS: The patient denies diplopia or loss of vision. He does have hearing loss. He denies fevers, chills, sweats or recent weight change. He denies orthopnea or PND. He denies cough, fevers or chills. He denies hemoptysis or hematemesis. He denies change in bowel or bladder habits and denies blood in the stools or urine. He denies any skin rashes. He denies peripheral edema. The remainder of the review of systems is negative except as noted above. [place], [place] REPORT OF CONSULTATION NAME: DELIA ROTHMAN UNIT #: [id number] ROOM: 408 DOCTOR: INGRID MCKINNEY MD BIRTHDATE: [birth year] FAMILY HISTORY: Father and mother have an unknown history. SOCIAL HISTORY: The patient is retired from the [employer]. He does chew tobacco, but has never smoked. He does have daily consumption of alcohol. PHYSICAL EXAMINATION: GENERAL: The patient is a slender white male who is awake, alert and oriented. VITAL SIGNS: Pulse is 62 and regular, blood pressure is 134/74. When I rechecked his orthostatic vital signs, blood pressure was 158/78 supine, 144/80 sitting and 150/80 standing. Heart rate did not change. HEENT: Normocephalic and atraumatic. Extraocular muscles are intact. Sclerae are clear. Pupils equal, round and react to light. The oral mucosa is moist. Tongue is midline. NECK: Supple. He has no jugular distention. Carotids are full. There are no bruits. He has no neck or supraclavicular masses, and no thyromegaly. LUNGS: Respirations are unlabored. His chest is clear to auscultation and percussion. He has no presacral edema or chest wall tenderness. CARDIOVASCULAR: His heart has a regular rhythm. He has a soft S4 gallop, but no S3 or murmur. The PMI is not displaced. He has no precordial heave, lift or thrill. ABDOMEN: Soft and normally active without masses, organomegaly or bruits. EXTREMITIES: Showed no edema. Pedal pulses were palpable in the feet. LABORATORY DATA: Electrocardiogram shows sinus rhythm with possible old inferior wall myocardial infarction, but no acute changes. Hemoglobin is 9.7, white count 2200, hematocrit 29.4, platelet count 198,000. Today, the sodium is 136, potassium 4.0, BUN 16, creatinine 1.01. IMPRESSIONS: 1. Syncope, etiology not yet determined. The patient certainly was hyponatremic on admission, but likely got there slowly. He does not give any history to suggest seizure and specifically denied tongue biting, loss of bowel or bladder control, etc. Orthostatic hypotension is a possibility. The patient has been fluid replaced since admission and therefore may not be orthostatic anymore. 2. Bradycardia. This is mild and probably at least partially related to his beta melvin therapy for hypertension. 3. History of falling spells and hyponatremia in 2017. 4. History of subdural hematoma in March 2017 after a fall. PLAN: I would stop his thiazide diuretics since this would likely contribute to dehydration and hyponatremia. I think we can continue his beta melvin at a low dose. I would check his orthostatic blood pressures at least once or twice more. I would like to see an echocardiogram before he is discharged. If that looks good, then he could be followed further as an outpatient. I thank Dr. Walker for asking my advice regarding his care. [place], [place] REPORT OF CONSULTATION NAME: DELIA ROTHMAN UNIT #: [id number] ROOM: 408 DOCTOR: INGRID MCKINNEY MD BIRTHDATE: [birth year] INGRID MCKINNEY MD CM:CONSTR:REPORT OF CONSULTATION 1547 08/25/18 1415 interface
[~2018-08-22 16:56] MED LIST changes: +NORVASC5 MG PO; +PEPCID20 MG PO; +PROTONIX40 MG PO; +VITAMIN D-32000 UNIT PO
[2018-08-22 17:05] VITALS: BP 171/87
[2018-08-22 17:23] LABS: EOS # 0.1 10*3/uL (0.0-0.4); EOS % 3.6 % (1.0-4.0); HEMATOCRIT 30.7 % (42.0-52.0); HEMOGLOBIN 10.4 g/dl (14.0-18.0); LYMPH # 0.5 10*3/uL (1.3-4.4); LYMPH % 19.3 % (27.0-41.0); MEAN CELL VOLUME 90.8 fl (80.0-94.0); MEAN CORPUSCULAR HGB 30.8 pg (27.0-31.0); MEAN CORPUSCULAR HGB CONC 33.9 g/dl (33.0-37.0); MEAN PLATELET VOLUME 8.4 fl (9.6-12.3); MONO # 0.5 10*3/uL (0.1-1.0); MONO % 16.4 % (3.0-9.0); NEUT # 1.7 10*3/uL (2.3-7.9); NEUT % 60.3 % (47.0-73.0); PLATELET COUNT AUTOMATED 213 10*3/uL (130-400); RED BLOOD COUNT 3.38 10*6/uL (4.50-5.90); RED CELL DISTRI WIDTH 12.2 % (0-14.5); WHITE BLOOD COUNT 2.8 10*3/uL (4.8-10.8)
[2018-08-22 17:41] LABS: ALBUMIN 3.8 gm/dl (3.1-4.5); ALKALINE PHOSPHATASE 59 U/L (45-117); BUN 25 mg/dl (7-24); CHLORIDE 93 mmol/L (98-107); CREATININE 1.41 mg/dL (0.70-1.30); SGOT/AST 17 IU/L (3-35); SGPT/ALT 22 U/L (12-78); SODIUM 128 mmol/L (136-145); TOTAL PROTEIN 6.6 gm/dL (6.4-8.2)
[2018-08-22 17:44] LABS: TROPONIN I < 0.015 ng/ml (<0.045)
[2018-08-22 18:00] VITALS: BP 154/88
[2018-08-22] MEDS ORDERED: HYDR25T PO (18:28)
[2018-08-22] MEDS ORDERED: GOOD NEIGHBOR P20 MG PO (18:28)
[2018-08-22] MEDS ORDERED: FEROSUL325 MG PO (18:28)
[2018-08-22] MEDS ORDERED: Meclizine25 MG PO (18:28)
[2018-08-22 19:14] LABS: BILIRUBIN NEGATIVE (NEGATIVE); BLOOD NEGATIVE (NEGATIVE); CLARITY CLEAR (CLEAR); COLOR YELLOW (YELLOW); GLUCOSE NEGATIVE (NEGATIVE); KETONE NEGATIVE (NEGATIVE); LEUKO ESTERASE NEGATIVE (NEGATIVE); NITRITE NEGATIVE (NEGATIVE); SPECIFIC GRAVITY <= 1.005 (1.005-1.030); UROBILINOGEN 0.2 E.U./dl (0.2-1.0)
[2018-08-22 19:19] LABS: BACTERIA TRACE; EPITHELIAL CELLS 0-2; RBC 0-2 rbc/hpf (0-2); WBC 0-2 wbc/hpf (0-5)
[2018-08-22 19:22] LABS: URINE AMPHETAMINES < 1000 (1000ng/ml); URINE BARBITURATES < 200 (200ng/ml); URINE BENZODIAZEPINES < 200 (200ng/ml); URINE CANNABINOIDS (THC) < 50 (50ng/ml); URINE COCAINE < 300 (300ng/ml); URINE METHADONE < 300 (300ng/ml); URINE OPIATES < 300 (300ng/ml); URINE PHENCYCLIDINE < 25 (25ng/ml)
[2018-08-22 20:00] VITALS: BP 163/80
[2018-08-23] VITALS: BP 141/72
[2018-08-23 06:12] LABS: BASO % 0.4 % (0.0-1.0); EOS # 0.1 10*3/uL (0.0-0.4); EOS % 3.6 % (1.0-4.0); LYMPH # 0.5 10*3/uL (1.3-4.4); LYMPH % 18.7 % (27.0-41.0); MEAN CELL VOLUME 91.5 fl (80.0-94.0); MEAN CORPUSCULAR HGB 31.5 pg (27.0-31.0); MEAN CORPUSCULAR HGB CONC 34.5 g/dl (33.0-37.0); MEAN PLATELET VOLUME 9.5 fl (9.6-12.3); MONO # 0.4 10*3/uL (0.1-1.0); MONO % 17.5 % (3.0-9.0); NEUT # 1.5 10*3/uL (2.3-7.9); NEUT % 59.4 % (47.0-73.0); PLATELET COUNT AUTOMATED 210 10*3/uL (130-400); RED BLOOD COUNT 3.17 10*6/uL (4.50-5.90); RED CELL DISTRI WIDTH 12.3 % (0-14.5); WHITE BLOOD COUNT 2.5 10*3/uL (4.8-10.8)
[2018-08-23 06:42] LABS: BUN 18 mg/dl (7-24); CHLORIDE 101 mmol/L (98-107); CREATININE 1.08 mg/dL (0.70-1.30); PHOSPHOROUS 2.9 mg/dL (2.5-4.9); POTASSIUM 3.9 mmol/L (3.5-5.1); SODIUM 134 mmol/L (136-145)
[2018-08-23 12:00] VITALS: BP 156/82
[2018-08-23 16:00] VITALS: BP 138/78
[2018-08-23 20:00] VITALS: BP 130/69
[2018-08-24] VITALS: BP 153/74
[2018-08-24 06:04] LABS: BASO % 0.5 % (0.0-1.0); EOS # 0.1 10*3/uL (0.0-0.4); EOS % 5.9 % (1.0-4.0); HEMATOCRIT 29.4 % (42.0-52.0); HEMOGLOBIN 9.7 g/dl (14.0-18.0); LYMPH # 0.5 10*3/uL (1.3-4.4); LYMPH % 21.4 % (27.0-41.0); MEAN CELL VOLUME 93.6 fl (80.0-94.0); MEAN CORPUSCULAR HGB 30.9 pg (27.0-31.0); MEAN PLATELET VOLUME 9.6 fl (9.6-12.3); MONO # 0.4 10*3/uL (0.1-1.0); MONO % 17.7 % (3.0-9.0); NEUT # 1.2 10*3/uL (2.3-7.9); PLATELET COUNT AUTOMATED 198 10*3/uL (130-400); RED BLOOD COUNT 3.14 10*6/uL (4.50-5.90); RED CELL DISTRI WIDTH 12.5 % (0-14.5); WHITE BLOOD COUNT 2.2 10*3/uL (4.8-10.8)
[2018-08-24 06:22] LABS: BUN 16 mg/dl (7-24); CHLORIDE 101 mmol/L (98-107); CREATININE 1.01 mg/dL (0.70-1.30); SODIUM 136 mmol/L (136-145)
[2018-08-24 08:00] VITALS: BP 130/80
[2018-08-24 12:00] VITALS: BP 134/74
[2018-08-24 16:00] VITALS: BP 158/78
[2018-08-24 20:00] VITALS: BP 131/76
[2018-08-25] VITALS: BP 155/83
[2018-08-25 06:09] LABS: BASO % 0.4 % (0.0-1.0); EOS # 0.2 10*3/uL (0.0-0.4); EOS % 6.7 % (1.0-4.0); HEMATOCRIT 30.4 % (42.0-52.0); HEMOGLOBIN 10.3 g/dl (14.0-18.0); LYMPH # 0.6 10*3/uL (1.3-4.4); MEAN CORPUSCULAR HGB 31.5 pg (27.0-31.0); MEAN CORPUSCULAR HGB CONC 33.9 g/dl (33.0-37.0); MEAN PLATELET VOLUME 8.9 fl (9.6-12.3); MONO # 0.4 10*3/uL (0.1-1.0); MONO % 17.3 % (3.0-9.0); NEUT # 1.4 10*3/uL (2.3-7.9); NEUT % 52.8 % (47.0-73.0); PLATELET COUNT AUTOMATED 187 10*3/uL (130-400); RED BLOOD COUNT 3.27 10*6/uL (4.50-5.90); RED CELL DISTRI WIDTH 12.5 % (0-14.5); WHITE BLOOD COUNT 2.6 10*3/uL (4.8-10.8)
[2018-08-25 06:33] LABS: BUN 15 mg/dl (7-24); CHLORIDE 99 mmol/L (98-107); CREATININE 1.05 mg/dL (0.70-1.30); POTASSIUM 4.3 mmol/L (3.5-5.1); SODIUM 136 mmol/L (136-145)
[2018-08-25 08:00] VITALS: BP 100/50; BP 138/60
== END 2018-08-25 12:07 | disposition home or self-care (01) | DRG 683 ==
LOC: ED 16:56 → 4E 17:59 → EDHOLD 17:59 → 4E 19:11
PROVIDERS: Family Medicine; Internal Medicine Cardiovascular Disease; Nurse Practitioner Family; Student in an Organized Health Care Education/Training Program; ADMIT Internal Medicine
DX: N17.0 Acute kidney failure with tubular necrosis (principal); E44.0 Moderate protein-calorie malnutrition; E87.1 Hypo-osmolality and hyponatremia; I95.1 Orthostatic hypotension; E86.0 Dehydration; K57.90 Diverticulosis of intestine, part unspecified, without perforation or abscess without bleeding; F17.200 Nicotine dependence, unspecified, uncomplicated; K21.9 Gastro-esophageal reflux disease without esophagitis; I10 Essential (primary) hypertension; F43.10 Post-traumatic stress disorder, unspecified; H25.9 Unspecified age-related cataract; E55.9 Vitamin D deficiency, unspecified; Z97.4 Presence of external hearing-aid; D72.819 Decreased white blood cell count, unspecified; D64.9 Anemia, unspecified; E87.8 Other disorders of electrolyte and fluid balance, not elsewhere classified; R73.9 Hyperglycemia, unspecified; Z68.24 Body mass index [BMI] 24.0-24.9, adult; Z71.6 Tobacco abuse counseling; Z98.49 Cataract extraction status, unspecified eye; Z72.89 Other problems related to lifestyle; Z80.8 Family history of malignant neoplasm of other organs or systems; Z83.3 Family history of diabetes mellitus

== ENCOUNTER → 2019-01-08 | Outpatient (CLI) | payer OTHER ==
[~2019-01-08] MED LIST changes: +FEROSUL325 MG PO; +GOOD NEIGHBOR P20 MG PO; +HYDR25T PO; +Meclizine25 MG PO
== END | disposition home or self-care (01) ==
LOC: LAB 12:04
DX: C61 Malignant neoplasm of prostate (principal)

== ENCOUNTER 2019-03-05 13:19 | Emergency (ER) | payer OTHER ==
[~2019-03-05] VITALS: Wt 69.4 kg
--- NOTE | ~2019-03-05 | EKG ---
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
--- NOTE | ~2019-03-05 | EKG ---
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
[2019-03-05 13:44] LABS: BASO % 0.3 % (0.0-1.0); EOS # 0.1 10*3/uL (0.0-0.4); EOS % 2.2 % (1.0-4.0); HEMATOCRIT 34.1 % (42.0-52.0); LYMPH # 0.8 10*3/uL (1.3-4.4); LYMPH % 25.4 % (27.0-41.0); MEAN CELL VOLUME 88.6 fl (80.0-94.0); MEAN CORPUSCULAR HGB 31.2 pg (27.0-31.0); MEAN CORPUSCULAR HGB CONC 35.2 g/dl (33.0-37.0); MEAN PLATELET VOLUME 10.1 fl (9.6-12.3); MONO # 0.5 10*3/uL (0.1-1.0); MONO % 14.4 % (3.0-9.0); NEUT # 1.8 10*3/uL (2.3-7.9); NEUT % 57.4 % (47.0-73.0); PLATELET COUNT AUTOMATED 262 10*3/uL (130-400); RED BLOOD COUNT 3.85 10*6/uL (4.50-5.90); RED CELL DISTRI WIDTH 12.8 % (0-14.5); WHITE BLOOD COUNT 3.2 10*3/uL (4.8-10.8)
[2019-03-05 13:57] LABS: ACT PARTIAL THROMBO TIME 25.9 SECONDS (20.0-32.1); INTERNATIONAL NORM RATIO 0.9 (2.0-3.5)
[2019-03-05 14:43] LABS: LIPASE 266 U/L (73-393)
[2019-03-05 14:44] LABS: ALKALINE PHOSPHATASE 83 U/L (45-117); BUN 26 mg/dl (7-24); CHLORIDE 91 mmol/L (98-107); CREATININE 1.39 mg/dL (0.70-1.30); POTASSIUM 4.2 mmol/L (3.5-5.1); SGOT/AST 11 IU/L (3-35); SGPT/ALT 21 U/L (12-78); SODIUM 124 mmol/L (136-145); TOTAL PROTEIN 7.2 gm/dL (6.4-8.2); TROPONIN I < 0.015 ng/ml (<0.045)
[2019-03-05 17:30] VITALS: BP 137/86
== END 2019-03-05 17:40 | disposition left against medical advice (07) ==
LOC: ED 13:19
PROVIDERS: Emergency Medicine
DX: R07.89 Other chest pain (principal); E87.1 Hypo-osmolality and hyponatremia; K21.9 Gastro-esophageal reflux disease without esophagitis; I10 Essential (primary) hypertension; F17.220 Nicotine dependence, chewing tobacco, uncomplicated; Z79.899 Other long term (current) drug therapy

== ENCOUNTER → 2019-08-06 | Outpatient (CLI) | payer OTHER | END | disposition home or self-care (01) | LOC: LAB 15:15 | DX: C61 Malignant neoplasm of prostate (principal) ==

== ENCOUNTER 2020-01-11 11:11 | Emergency (ER) | payer OTHER ==
[2020-01-11 11:15] VITALS: BP 162/82
== END 2020-01-11 13:44 | disposition home or self-care (01) ==
LOC: ED 11:11
DX: M54.9 Dorsalgia, unspecified (principal); I10 Essential (primary) hypertension; E11.9 Type 2 diabetes mellitus without complications; K21.9 Gastro-esophageal reflux disease without esophagitis; Z79.899 Other long term (current) drug therapy

== ENCOUNTER → 2020-02-01 | Outpatient (CLI) | payer OTHER | END | disposition home or self-care (01) | LOC: LAB 07:55 | DX: C61 Malignant neoplasm of prostate (principal) ==

== ENCOUNTER 2024-09-26 14:10 | Emergency (ER) | payer OTHER ==
[~2024-09-26] VITALS: Ht 167.6 cm; Wt 77.1 kg
[2024-09-26 14:28] VITALS: BP 133/73
[2024-09-26] MEDS ORDERED: LEVOTHYROXINE50 MCG PO (14:55)
[2024-09-26] MEDS ORDERED: LISINOPRIL40 MG PO (14:55)
[2024-09-26] MEDS ORDERED: MEMANTINE HCL E28 MG PO (14:55)
[2024-09-26] MEDS ORDERED: DONEPEZIL HCL10 MG PO (14:55)
[2024-09-26] MEDS ORDERED: AMLODIPINE BESYL5 MG PO (14:55)
== END 2024-09-26 14:57 | disposition home or self-care (01) ==
LOC: ED 14:10
DX: I10 Essential (primary) hypertension (principal); Z76.0 Encounter for issue of repeat prescription; E11.9 Type 2 diabetes mellitus without complications; E87.6 Hypokalemia; K21.9 Gastro-esophageal reflux disease without esophagitis; F17.220 Nicotine dependence, chewing tobacco, uncomplicated; Z98.890 Other specified postprocedural states